=== PATIENT | female | born 1955 | race African-American/Black ===

== ENCOUNTER 2017-07-06 17:00 | Emergency (ER) | payer BC ==
[~2017-07-06] VITALS: Ht 182.9 cm; Wt 149.7 kg
[2017-07-06 17:00] VITALS: BP 139/83
[~2017-07-06 17:00] MED LIST: SITA50TA PO
== END 2017-07-06 19:02 | disposition home or self-care (01) ==
LOC: ER 17:13
DX: S03.01XA Dislocation of jaw, right side, initial encounter (principal); X58.XXXA Exposure to other specified factors, initial encounter; Y93.89 Activity, other specified; Y92.89 Other specified places as the place of occurrence of the external cause; Y99.8 Other external cause status; I10 Essential (primary) hypertension; E11.9 Type 2 diabetes mellitus without complications; E78.00 Pure hypercholesterolemia, unspecified; Z88.2 Allergy status to sulfonamides; Z91.013 Allergy to seafood
CPT/HCPCS: 99283; A4606; Z7610

== ENCOUNTER 2018-02-22 20:10 | Emergency (ER) | payer BC, MEDICAID ==
[~2018-02-22] VITALS: Ht 182.9 cm; Wt 149.7 kg
--- NOTE | 2018-02-22 20:20 | NUR ---
BIB SELF C/O CP X 2 DAYS, STATES SHARP PAIN WHEN SHE MOVES HER ARM, ALSO C/O "ALL OVER BODY SPASMS AND HIGH BLOOD SUGAR". DENIES SOB. NAD NOTED, VSS, RESP EVEN AND UNLABORED, PT WAS PUT ON MONITOR. AT BS.
[2018-02-22] MEDS ORDERED: Magnesium 1 GM/2 ML VIAL IV ONE (21:00)
[2018-02-22] MEDS ORDERED: IV NS 0.9% 1,000 ML IV PRN (21:00)
[2018-02-22 21:01] LABS: BASOPHILS # (AUTO) 0.5 /CMM (0.0-0.2); BASOPHILS % (AUTO) 4.1 % (0.0-2.0); EOSINOPHILS % (AUTO) 2.4 % (0.0-6.0); HEMATOCRIT 46 % (33-45); HEMOGLOBIN 15.6 g/dL (11.5-14.8); LYMPHOCYTES # (AUTO) 3.7 /CMM (0.8-4.8); LYMPHOCYTES % (AUTO) 28.6 % (20.0-44.0); MEAN CORPUSCULAR HGB CONC 34 g/dl (31.0-36.0); MEAN CORPUSCULAR VOLUME 86 fL (82-100); MONOCYTES # (AUTO) 0.9 /CMM (0.1-1.30); NEUTROPHILS # (AUTO) 7.4 /CMM (1.8-8.9); NEUTROPHILS % (AUTO) 57.9 % (43.0-81.0); PLATELET COUNT (AUTO) 390 /CMM (150-450); RDW COEFFICIENT OF VARIATION 11.9 (11.5-15.0); RED BLOOD CELL COUNT(AUTO) 5.33 MIL/uL (4.0-5.2); WHITE BLOOD COUNT (AUTO) 12.8 K/uL (4.3-11.0)
[2018-02-22] MEDS ORDERED: Magnesium 1GM/D5W 100ML PREMIX 200 ML IV ONE (21:05)
[2018-02-22 21:12] LABS: CALCIUM, SERUM 9.7 mg/dL (8.5-10.1); CARBON DIOXIDE 26 mmol/L (21-32); CHLORIDE 101 mmol/L (98-107); CREATININE 1.2 mg/dL (0.6-1.3); GLUCOSE 290 mg/dL (74-106); POTASSIUM 4.1 mmol/L (3.5-5.1); SODIUM SERUM 136 mmol/L (136-145); UREA NITROGEN, BLOOD 13 mg/dL (7-18)
[2018-02-22 21:20] LABS: TROPONIN I < 0.017 ng/mL (0.00-0.056)
[2018-02-22 22:25] VITALS: BP 158/92
--- NOTE | 2018-02-22 22:26 | NUR ---
Patient discharged to home in stable condition. Written and verbal after care instructions given. Patient verbalizes understanding of instruction.IV removed. Catheter intact and site benign. Pressure and 4x4 applied to site. No bleeding noted.
== END 2018-02-22 22:33 | disposition home or self-care (01) ==
LOC: ER 20:13
DX: R07.89 Other chest pain (principal); M62.838 Other muscle spasm; E11.9 Type 2 diabetes mellitus without complications; I10 Essential (primary) hypertension; Z88.2 Allergy status to sulfonamides; Z91.013 Allergy to seafood; Z98.890 Other specified postprocedural states
CPT/HCPCS: 36415; 71045; 80048; 82962; 84484; 85025; 93005; 96365; 99285; A4606; J3475; J7030; Z7610

== ENCOUNTER 2018-03-07 02:39 | Emergency (ER) | payer MEDICAID ==
[~2018-03-07] VITALS: Ht 182.9 cm; Wt 149.7 kg
[2018-03-07 02:45] VITALS: BP 133/96
== END 2018-03-07 05:06 | disposition home or self-care (01) ==
LOC: ER 02:41
DX: I80.8 Phlebitis and thrombophlebitis of other sites (principal); I10 Essential (primary) hypertension; E11.9 Type 2 diabetes mellitus without complications; Z98.890 Other specified postprocedural states; Z88.2 Allergy status to sulfonamides; Z91.013 Allergy to seafood
CPT/HCPCS: 93971; 99284; A4606; Z7610

== ENCOUNTER 2019-09-26 07:14 | Emergency (ER) | payer MEDICAID ==
[~2019-09-26] VITALS: Ht 180.3 cm; Wt 132.0 kg
--- NOTE | 2019-09-26 07:30 | NUR ---
Dizzy started 1wk ago feels like room moving turning to left worse. Nausea. Patient a/ox4, breathing even and unlabored, no sob noted, needs attended, changed into gown, attached to the turnstile attendant.
--- NOTE | 2019-09-26 07:50 | NUR ---
patient iv line established, blood drawn and sent to lab
[2019-09-26] MEDS ORDERED: MECLIZINE HCL 25 MG TABLET ONE (07:59)
[2019-09-26] MEDS ORDERED: MECLIZINE HCL 25 MG TABLET PO ONE (08:00)
[2019-09-26 08:10] LABS: BASOPHILS # (AUTO) 0.1 /CMM (0.0-0.2); BASOPHILS % (AUTO) 1.5 % (0.0-2.0); EOSINOPHILS % (AUTO) 3.8 % (0.0-6.0); HEMATOCRIT 43 % (33-45); HEMOGLOBIN 14.1 g/dL (11.5-14.8); LYMPHOCYTES # (AUTO) 3.3 /CMM (0.8-4.8); LYMPHOCYTES % (AUTO) 34.8 % (20.0-44.0); MEAN CORPUSCULAR HGB CONC 33 g/dl (31.0-36.0); MEAN CORPUSCULAR VOLUME 88 fL (82-100); MONOCYTES # (AUTO) 0.7 /CMM (0.1-1.30); MONOCYTES % (AUTO) 7.5 % (2.0-12.0); NEUTROPHILS % (AUTO) 52.4 % (43.0-81.0); PLATELET COUNT (AUTO) 331 /CMM (150-450); RED BLOOD CELL COUNT(AUTO) 4.89 MIL/uL (4.0-5.2); WHITE BLOOD COUNT (AUTO) 9.6 K/uL (4.3-11.0)
[2019-09-26 08:21] LABS: CALCIUM, SERUM 8.7 mg/dL (8.5-10.1); CARBON DIOXIDE 28 mmol/L (21-32); CHLORIDE 105 mmol/L (98-107); CREATININE 1.1 mg/dL (0.6-1.3); GLUCOSE 212 mg/dL (74-106); POTASSIUM 3.9 mmol/L (3.5-5.1); SODIUM SERUM 141 mmol/L (136-145); UREA NITROGEN, BLOOD 13 mg/dL (7-18)
--- NOTE | 2019-09-26 09:07 | NUR ---
Attempted to do standing blood pressure, patient unable to tolerate the tightness of the blood pressure cuff. Refused standing bp at this time.
--- NOTE | 2019-09-26 09:30 | NUR ---
patient stated she feels better, denies dizziness at this time.
--- NOTE | 2019-09-26 09:59 | NUR ---
IV removed. Catheter intact and site benign. Pressure and 4x4 applied to site. No bleeding noted.Patient discharged to home in stable condition. Written and verbal after care instructions given. Patient verbalizes understanding of instruction.
[2019-09-26 10:00] VITALS: BP 135/96
== END 2019-09-26 10:00 | disposition home or self-care (01) ==
LOC: ER 07:14
DX: R42 Dizziness and giddiness (principal); I10 Essential (primary) hypertension; E11.9 Type 2 diabetes mellitus without complications; Z98.890 Other specified postprocedural states; Z88.2 Allergy status to sulfonamides; Z91.013 Allergy to seafood; Z79.4 Long term (current) use of insulin
CPT/HCPCS: 36415; 71045; 80048; 84484; 85025; 93005; 99284; J8597

== ENCOUNTER 2022-05-19 14:56 | Emergency (ER) | payer OTHER ==
[~2022-05-19] VITALS: Ht 165.1 cm; Wt 68.0 kg
--- NOTE | 2022-05-19 16:00 | NUR ---
dr snowden at bedside for eval.
[2022-05-19] MEDS ORDERED: ACETAMINOPHEN 325 MG TABLET ONE (16:13)
[2022-05-19] MEDS ORDERED: ACETAMINOPHEN 325 MG TABLET PO ONE (16:30)
--- NOTE | 2022-05-19 16:58 | NUR ---
Patient discharged to home in stable condition. Written and verbal after care instructions given. Patient verbalizes understanding of instruction.
[2022-05-19 17:01] VITALS: BP 150/98
== END 2022-05-19 17:02 | disposition home or self-care (01) ==
LOC: ER 15:09
DX: M71.9 Bursopathy, unspecified (principal); I10 Essential (primary) hypertension; E11.9 Type 2 diabetes mellitus without complications; Z88.2 Allergy status to sulfonamides; Z91.013 Allergy to seafood; Z79.899 Other long term (current) drug therapy
CPT/HCPCS: 73080-TC

== ENCOUNTER 2023-08-02 22:35 | Emergency (ER) | payer OTHER ==
[~2023-08-02] VITALS: Ht 182.9 cm; Wt 124.7 kg
[2023-08-03 00:09] LABS: BASOPHILS # (AUTO) 0.1 K/uL (0.0-0.2); BASOPHILS % (AUTO) 1.3 % (0.0-2.0); EOSINOPHILS # (AUTO) 0.7 K/uL (0.0-0.7); EOSINOPHILS % (AUTO) 7.7 % (0.0-6.0); HEMATOCRIT 44 % (33-45); HEMOGLOBIN 14.4 g/dL (11.5-14.8); LYMPHOCYTES # (AUTO) 1.5 K/uL (0.8-4.8); LYMPHOCYTES % (AUTO) 15.6 % (20.0-44.0); MEAN CORPUSCULAR HEMOGLOBIN 29 PG (26.0-33.0); MEAN CORPUSCULAR HGB CONC 33 g/dl (31.0-36.0); MEAN CORPUSCULAR VOLUME 88 fL (82-100); MONOCYTES # (AUTO) 0.5 K/uL (0.1-1.30); MONOCYTES % (AUTO) 5.2 % (2.0-12.0); NEUTROPHILS # (AUTO) 6.6 K/uL (1.8-8.9); NEUTROPHILS % (AUTO) 70.2 % (43.0-81.0); PLATELET COUNT (AUTO) 316 K/uL (150-450); RED BLOOD CELL COUNT(AUTO) 4.98 MIL/uL (4.0-5.2); RED CELL DISTRIBUTION WIDTH 12.9 % (11.5-15.0); WHITE BLOOD COUNT (AUTO) 9.4 K/uL (4.3-11.0)
[2023-08-03 00:25] LABS: CALCIUM, SERUM 9.3 mg/dL (8.5-10.1); CARBON DIOXIDE 27 mmol/L (21-32); CHLORIDE 102 mmol/L (98-107); CREATININE 1.1 mg/dL (0.6-1.3); GLUCOSE 145 mg/dL (74-106); POTASSIUM 3.2 mmol/L (3.5-5.1); SODIUM SERUM 137 mmol/L (136-145); UREA NITROGEN, BLOOD 15 mg/dL (7-18)
[2023-08-03 00:32] LABS: INR 1.01 (0.91-1.10); PARTIAL THROMBOPLASTIN TIME 27.1 SEC (24.3-34.3); PROTHROMBIN TIME 10.7 SECS (9.2-11.1)
[2023-08-03 00:40] LABS: ALANINE AMINOTRANSFERASE 45 U/L (12-78); ALBUMIN 3.7 g/dL (3.4-5.0); ALKALINE PHOSPHATASE 89 U/L (46-116); ASPARTATE AMINOTRANSFERASE 31 U/L (15-37); BILIRUBIN,DIRECT 0.1 mg/dL (0.0-0.2); BILIRUBIN,TOTAL 0.5 mg/dL (0.2-1.0); NT-PRO BNP 32 pg/mL (0-125); TOTAL PROTEIN, SERUM 7.9 g/dL (6.4-8.2)
[2023-08-03 00:47] LABS: THYROID STIMULATING HORMONE 2.3 uIU/mL (0.358-3.74)
[2023-08-03 01:09] LABS: MAGNESIUM 2.3 mg/dL (1.8-2.4)
[2023-08-03 03:05] VITALS: BP 148/89; TEMP 98; O2SAT 99
== END 2023-08-03 03:05 | disposition home or self-care (01) ==
LOC: ER 22:45
DX: R00.2 Palpitations (principal); I10 Essential (primary) hypertension; E78.5 Hyperlipidemia, unspecified; E11.9 Type 2 diabetes mellitus without complications; Z88.2 Allergy status to sulfonamides; Z91.013 Allergy to seafood
CPT/HCPCS: 36415; 71045-TC; 80048-TC; 80076-TC; 83735-TC; 83880; 84439-TC; 84443-TC; 84484-TC; 85025-TC; 85730-TC

== ENCOUNTER 2025-06-14 20:52 | Emergency (ER) | payer OTHER, MEDICAID ==
[~2025-06-14] VITALS: Ht 182.9 cm; Wt 124.7 kg
[2025-06-14] MEDS ORDERED: KETOROLAC TROMETHAMINE 15 MG/ML VIAL ONE (21:51)
[2025-06-14] MEDS ORDERED: ONDANSETRON HCL/PF 4 MG/2 ML VIAL ONE (21:52)
[2025-06-14] MEDS: IV NS 0.9% 1,000 ML BAG IV ONE (21:58)
[2025-06-14] MEDS: KETOROLAC TROMETHAMINE 15 MG/ML VIAL IV ONE (21:58)
[2025-06-14] MEDS: ONDANSETRON HCL/PF 4 MG/2 ML VIAL IVP ONE (21:58)
[2025-06-14 22:00] LABS: PLATELET COUNT (AUTO) 321 K/uL (150-450); RED BLOOD CELL COUNT(AUTO) 5.42 MIL/uL (4.0-5.2); RED CELL DISTRIBUTION WIDTH 13.0 % (11.5-15.0); WHITE BLOOD COUNT (AUTO) 14.6 K/uL (4.3-11.0)
[2025-06-14 22:13] LABS: ASPARTATE AMINOTRANSFERASE 15.0 U/L (15-37); CALCIUM, SERUM 8.9 mg/dL (8.5-10.1); CREATININE 1.3 mg/dL (0.6-1.3); SODIUM SERUM 142.0 mmol/L (136-145); TOTAL PROTEIN, SERUM 7.8 g/dL (6.4-8.2); UREA NITROGEN, BLOOD 12.0 mg/dL (7-18)
[2025-06-15] MEDS: METRONIDAZOLE 500MG/ NS 100ML 500 MG in PREMIX 1 EA IV SCH (00:30)
[2025-06-15] MEDS ORDERED: LEVOFLOXACIN 500 MG /D5W 100ML 100 ML IV ONE (01:06)
[2025-06-15] MEDS ORDERED: METRONIDAZOLE 500MG/ NS 100ML 100 ML IV ONE (01:06)
[2025-06-15] MEDS: LEVOFLOXACIN 500 MG /D5W 100ML 500 MG/100 ML PIGGYBACK IV ONE (01:09)
[2025-06-15] MEDS ORDERED: METR500T PO (01:12)
[2025-06-15] MEDS ORDERED: ONDA4TAB5 PO (01:12)
[2025-06-15] MEDS ORDERED: LEVO500T90 PO (01:12)
[2025-06-15 02:18] VITALS: BP 132/78; TEMP 98.4; O2SAT 97
== END 2025-06-15 02:19 | disposition home or self-care (01) ==
LOC: ER 20:57
DX: K57.32 Diverticulitis of large intestine without perforation or abscess without bleeding (principal); R11.10 Vomiting, unspecified; I10 Essential (primary) hypertension; E11.9 Type 2 diabetes mellitus without complications; R06.02 Shortness of breath; Z88.2 Allergy status to sulfonamides; Z91.013 Allergy to seafood; Z79.84 Long term (current) use of oral hypoglycemic drugs
CPT/HCPCS: 99285; 74176; 96375; 71045; 96361; 93005; 85025; 80048; 83690; 80076; 36415; 84484; 83880; 96365; 96368; 87040; J1885; J2405; J7030; J1956; A4216; A4223